=== PATIENT | male | born 2000 | race Caucasian/White ===

== ENCOUNTER → 2018-02-03 | Outpatient (CLI) | payer OTHER ==
--- NOTE | 2018-02-03 14:13 | DIAGNOSTIC IMAGING REPORT ---
R SHOULDER MIN 2 VIEWS CLINICAL HISTORY: RIGHT SHOULDER PAIN pain COMPARISON: None. DISCUSSION: The bones and joint spaces appear intact. There is no evidence of fracture, dislocation or bony disease. There is no evidence for soft tissue swelling. IMPRESSION: Negative study. The above report was generated using voice recognition software. It may contain grammatical, syntax or spelling errors. Electronically signed by: Cas Rose M.D. 02/03/2018 2:11 PM Dictated Date/Time: 02/03/2018 2:08 PM
== END | disposition home or self-care (01) ==
LOC: C.RDSM 15:44
PROVIDERS: ATTEND Internal Medicine
DX: M25.511 Pain in right shoulder (principal)

== ENCOUNTER → 2018-02-09 | Outpatient (CLI) | payer OTHER ==
--- NOTE | 2018-02-09 08:37 | DIAGNOSTIC IMAGING REPORT ---
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 TECHNIQUE: Multisequence, multiplanar MR imaging of the right shoulder was performed without the use of intravenous contrast. IV contrast: None. COMPARISON: Plain radiographs from 02/03/2018. FINDINGS: Localizer images: Unremarkable. Bone marrow: Normal bone marrow signal intensity. No bony edema. Bone island suggested in the subcortical right humeral head. Articular cartilage: Articular cartilage preserved. Labrum: Linear defects consistent with tear in the superior labrum extending from anterior to posterior (approximately 2:00 to 10:00). No displaced labral fragment. There is associated labral cystic change in the rotator cuff interval. Biceps and triceps tendons: The long head of the biceps tendon anchor demonstrates thickening and abnormal signal intensity (series 5 image 8) suggesting partial tear. The long head of the biceps tendon remains well seated within the intertubercular groove. Short head of the biceps tendon intact. Long head of the triceps tendon intact. Rotator cuff: Increased signal intensity within the supraspinatus insertional fibers and critical zone, which appears to involve the bursal surface and is greater than 50% in thickness consistent with partial tear. This may be multifocal. Infraspinatus tendon intact. Teres minor tendon intact. Thickening of the proximal fibers of the subscapularis tendon suggesting tendinosis. The transverse ligament portion of the subscapularis tendon remains intact. Acromioclavicular joint: Acromioclavicular joint intact. No significant degenerative change. No evidence of an os acromiale. Shoulder joint effusion: No shoulder joint effusion. Trace fluid in the subacromial subdeltoid bursa. Muscle: Normal muscle bulk and muscle signal intensity. Superficial soft tissue: No subcutaneous edema. IMPRESSION: 1. Findings consistent with superior labral anterior to posterior tear extending from 2:00 to 10:00. 2. Partial tear of the long head of the biceps tendon anchor. 3. Greater than 50% thickness partial bursal surface tear of the supraspinatus. 4. Subscapularis tendinosis. Electronically signed by: Trenton Ramirez M.D. 02/09/2018 8:35 AM Dictated Date/Time: 02/09/2018 8:24 AM
== END | disposition home or self-care (01) ==
LOC: C.MRI 07:30
PROVIDERS: ATTEND Internal Medicine
DX: S46.211A Strain of muscle, fascia and tendon of other parts of biceps, right arm, initial encounter (principal); X58.XXXA Exposure to other specified factors, initial encounter; M75.81 Other shoulder lesions, right shoulder